=== PATIENT | female | born 1970 | race Caucasian/White ===

== ENCOUNTER 2022-04-24 05:47 | Emergency (ER) | payer OTHER, SELFPAY ==
--- NOTE | 2022-04-24 05:54 | W.ED.GENAD ---
Discharge Plan Disposition Patient Disposition: STILL A PATIENT Condition: Good Discharge Details Chief Complaint: Nk/Back Pain Clinical Impression: Pain of right scapula, Back pain, Rib pain on right side Primary Care Provider: Griselda Linda ED Provider: Christian Juárez Home Meds and New Rx's Prescriptions: No Action levothyroxine 175 mcg tablet spironolactone 100 mg tablet levonorgestrel-ethinyl estrad [Setlakin] 0.15 mg-30 mcg (91) tablets,dose pack,3 month Label Comments: take 1 tablet by mouth once daily Medical Decision Making 51-year-old female with past medical history of hypothyroidism, PCOS, who takes oral contraceptives, presents today for evaluation after fall. Last night at 11:30 PM the patient was walking out of her camper when she slipped and hit the back of her head, neck, and back from the camper and ground. She had no loss of consciousness. She is not on blood thinners. Since she fell she now has pain in her back, pain when she breathes, pain in her right chest, and also admits to tingling when she moves her neck or head but denies any neck pain. Patient denies any saddle anesthesia, numbness or tingling in the groin, change in sensation when wiping. Patient denies any bowel or bladder incontinence, leakage, or retention. Patient denies any weakness in the lower extremities or imbalance. Physical exam demonstrates tenderness over the base of the right scapula, right ribs, and T10. She has good strength in her upper extremities, however whenever she moves her upper extremities she has notable pain in the back and chest. Bedside limited E fast exam demonstrates good lung sliding bilaterally, no pericardial effusion, no evidence of free fluid in the abdomen. Due to the patient's pain tenderness and exam findings we will get a CT scan of the head neck chest and thoracic spine. Patient does not want any narcotics. We will give Toradol. Will monitor closely and reassess. HPI General Date/Time Provider Initiated Documentation: 04/24/22 05:52. HPI Narrative: 51-year-old female with past medical history of hypothyroidism, PCOS, who takes oral contraceptives, presents today for evaluation after fall. Last night at 11:30 PM the patient was walking out of her camper when she slipped and hit the back of her head, neck, and back from the camper and ground. She had no loss of consciousness. She is not on blood thinners. Since she fell she now has pain in her back, pain when she breathes, pain in her right chest, and also admits to tingling when she moves her neck or head but denies any neck pain. Patient denies any saddle anesthesia, numbness or tingling in the groin, change in sensation when wiping. Patient denies any bowel or bladder incontinence, leakage, or retention. Patient denies any weakness in the lower extremities or imbalance. Related Data Home Medications Medication Instructions Recorded Confirmed levonorgestrel 0.15 mg-ethinyl dose pk 04/24/22 04/24/22 estradiol 30 mcg tablets,3 mos pack(91) (Setlakin) levothyroxine 175 mcg tablet tab 04/24/22 04/24/22 spironolactone 100 mg tablet tab 04/24/22 04/24/22 Allergies Allergy/AdvReac Type Severity Reaction Status Date / Time chlorhexidine Allergy Intermediate Skin Rash Unverified 04/24/22 06:08 Review of Systems All systems reviewed & are unremarkable except as noted in HPI and below PFSH All Active Problems (Updated 04/24/22 @ 07:41 by Christian Juárez DO) Pain of right scapula (Acute) Back pain (Acute) Rib pain on right side (Acute) Social History Smoking/Tobacco Use Status: Never Smoking risk assessment performed?: Yes Alcohol Intake: current Alcohol Intake frequency: holidays/special occasions only Drug use: Never Substance use type: does not use Do you feel safe at home: Yes Do you feel safe in your relationship?: Yes Exam Narrative Exam Narrative: 1.Const: Well-nourished, Well-developed, appearing stated age 2.Eyes: PERRL, no conjunctival injection, and symmetrical lids. 3.ENT: Atraumatic external nose and ears. Moist MM. Neck: Symmetric, trachea midline, No thyromegaly. There is no evidence of raccoon eyes, hair sign, CSF rhinorrhea, mastoid tenderness, cranial crepitus, hemotympanum, exophthalmos, or hyphema. Patient demonstrates intact dentition with no signs of tooth avulsion or fracture, no signs of jaw deformity, no evidence of a LeFort's fracture, with an intact palate, nose and orbital region. There is no evidence of a nasal septal hematoma. No proptosis. Jaw closes symmetrically. Airway is clear. 4.CVS: +S1/S2, No murmurs or gallops. Peripheral pulses 2+ and equal in all extremities. Brisk capillary refill in all extremities. Regular rate and rhythm, Normal s1 and s2. No murmurs, carotid bruits, rubs, or gallops. Radial pulses 2+ bilaterally and symmetric. Dorsalis pedis pulses 2+ bilaterally and symmetric. 2+ capillary refill. No evidence of distant heart sounds. No extremity edema. No evidence of gross hemorrhage. 5.RESP: airway clear, no obstructions. No abrasions or ecchymosis. Chest movement symmetric with respirations. No and chest wall tenderness. Patient does have mild right lateral chest wall tenderness. Trachea midline. No crepitus. No step offs. No paradoxical movements. Lungs are clear to auscultation bilaterally. No rales, rhonchi, wheezing or stridor. Breath sound symmetric. No Sucking chest wounds. No clinical evidence of significant chest trauma. 6.GI: Soft, Nontender/Nondistended, No hepatosplenomegaly. No guarding or rebound. 7.MSK: Normocephalic. Tenderness is present over the base of the right scapula. Right rib, and T10 vertebra. No midline tenderness over the cervical or lumbar spine. There is midline tenderness over T10. Normal ROM in flexion, extension, side bend, and rotation. Patient has +5 out of 5 strength in the lower extremities in dorsiflexion and plantarflexion, knee flexion and extension, hip flexion and extension. Normal strength for dorsiflexion and plantar flexion of the great toe bilaterally. There is +2 over 2 dorsalis pedis pulses bilaterally. There is normal sensation to the skin with light touch at the foot, knee, and hip. Normal saddle sensation. Good sensation over the deep sural nerve area bilaterally. Rectal exam deferred. Reflexes are +2 over 4 in the patellar reflex bilaterally. +5 out of 5 strength in the medial, ulnar, radial nerve distribution bilaterally in the hands as well as intact light touch sensation to these dermatomes on the hands 8.Skin: Warm, Dry. No rashes or lesions. 9.Neuro: sterile processing tech II-XII grossly intact. Sensation grossly intact, no focal neurologic deficits. 10.Psych: (AAO) x3. Appropriate mood and affect Procedures Other Description: E-FAST Exam type: Diagnostic Indication for exam: Blunt trauma Views obtained: hepatorenal, perisplenic, suprapubic, pericardial, R lung, L lung Findings and interpretations: all views were adequate. No abdominal free fluid or pericardial fluid seen. Normal lung sliding, normal sea shore sign, no bar code sign indicating no pneumothorax. The patient tolerated the procedure well and there were no complications. Sign Out Sign Out Data: Sign Out Comment: Fall, head neck, head, and back. Pending imaging Last updated by Christian Juárez DO at 04/24/22 07:39
[2022-04-24 05:56] VITALS: BP 164/92; PULSE 115; RESP 16; TEMP 36.2; O2SAT 98
--- NOTE | 2022-04-24 06:00 | DI.CT_ITS ---
Exam(s) CT HEAD CERVICAL SPINE WO EXAM: CT HEAD CERVICAL SPINE WO CLINICAL HISTORY: fell, hit head and left lateral neck. TECHNIQUE: Imaging Protocol: Axial computed tomography images with coronal and sagittal reformatted images were created and reviewed COMPARISON: No exams were available for comparison FINDINGS: CT Head: Ventricles and Extra axial spaces: Normal in size and morphology for the patient's age. Hemorrhage: None. Cerebral parenchyma: Normal. Midline shift: None. Brainstem/Cerebellum: Normal. Calvarium: Normal. Visualized Paranasal sinuses/Mastoids: Clear. Soft Tissues: Unremarkable. CT Cervical Spine: Bones: No acute fracture or subluxation. Degenerative changes are seen in the cervical spine. Soft Tissues: Unremarkable. Lung Apices: Clear. IMPRESSION: 1. No acute intracranial process. 2. No acute fracture or subluxation in the cervical spine. RADIATION DOSE DELIVERED: 1,502.04mGy.cm Total DLP DATA REPOSITORY: All CT scans at this facility are submitted to the National Radiology Data Registry (NRDR) Dose Index Registry (DIR) with the [employer] ([employer]). RADIATION OPTIMIZATION: All CT scans at this facility use at least one of these dose optimization te chniques: automated exposure control; mA and/or kV adjustment per patient size (includes targeted exa ms where dose is matched to clinical indication); or iterative reconstruction.
--- NOTE | 2022-04-24 06:10 | DI.CT_ITS ---
Exam(s) CT THORACIC SPINE RECONS CT CHEST WO EXAM: CT CHEST WO and CT thoracic spine recons CLINICAL HISTORY: fell, pain right scapula and t10, and bilat ribs. TECHNIQUE: Imaging protocol: Axial computed tomography images were obtained and coronal and sagittal reformatted images were created and reviewed. COMPARISON: CT CT THORACIC SPINE RECONS from 04/24/2022 FINDINGS: Tracheobronchial tree: Patent where visualized. Pulmonary parenchyma: No consolidation or dominant measurable mass. No architectural distortion. Mediastinum and Niya: No dominant adenopathy or fluid collection. The esophagus is unremarkable. Thyroid gland: Unremarkable. Pleura: No effusion or pneumothorax. Heart: The heart is not dilated. No coronary artery calcifications are seen. No pericardial effusion. Aorta: Thoracic aorta non-dilated. Upper abdomen: There is fatty infiltration of the liver. Lymph nodes: Within normal limits. Soft tissues: Unremarkable. Bones:Within normal limits for the patient's age. Incidental note is made of a hemangioma in the T11 vertebral body and right pedicle. Thoracic spine recons: No acute fractures or subluxations are seen in the thoracic spine. Degenerati ve changes are seen throughout the spine. IMPRESSION: 1. No acute pulmonary process. 2. No acute fractures or subluxations in the thoracic spine. RADIATION DOSE DELIVERED: Total DLP Total DLP DATA REPOSITORY: All CT scans at this facility are submitted to the National Radiology Data Registry (NRDR) Dose Index Registry (DIR) with the [employer] (ACR). RADIATION OPTIMIZATION: All CT scans at this facility use at least one of these dose optimization te chniques: automated exposure control; mA and/or kV adjustment per patient size (includes targeted exa ms where dose is matched to clinical indication); or iterative reconstruction.
[2022-04-24] MEDS: Ketorolac 30 MG/ML VIAL IM (06:29)
[2022-04-24 07:01] VITALS: BP 128/81; PULSE 94; RESP 18; TEMP 37; O2SAT 98
--- NOTE | 2022-04-24 08:22 | DI.VRAD_ITS ---
PROCEDURE INFORMATION: Exam: CT Head Without Contrast Exam date and time: 04/24/2022 7:33 AM Age: 51 years old Clinical indication: Other: Fell, hit head and left lateral neck TECHNIQUE: Imaging protocol: Computed tomography of the head without contrast. Radiation optimization: All CT scans at this facility use at least one of these dose optimization techniques: automated exposure control; mA and/or kV adjustment per patient size (includes targeted exams where dose is matched to clinical indication); or iterative reconstruction. COMPARISON: No relevant prior studies available. FINDINGS: Brain: Normal. No hemorrhage. Unremarkable white matter. No mass effect. Cerebral ventricles: No ventriculomegaly. Paranasal sinuses: Visualized sinuses are unremarkable. No fluid levels. Mastoid air cells: Visualized mastoid air cells are well aerated. Bones/joints: Unremarkable. No acute fracture. Soft tissues: Unremarkable. IMPRESSION: No acute intracranial abnormality. PROCEDURE INFORMATION: Exam: CT Cervical Spine Without Contrast Exam date and time: 04/24/2022 7:33 AM Age: 51 years old Clinical indication: Other: Fell, hit head and left lateral neck TECHNIQUE: Imaging protocol: Computed tomography images of the cervical spine without contrast. Radiation optimization: All CT scans at this facility use at least one of these dose optimization techniques: automated exposure control; mA and/or kV adjustment per patient size (includes targeted exams where dose is matched to clinical indication); or iterative reconstruction. COMPARISON: No relevant prior studies available. FINDINGS: Bones/joints: No acute fracture of the cervical spine. No subluxation or dislocation of the cervical spine. Anterior osteophyte formation C5. Degenerative changes in the facets at multiple levels Discs/Spinal canal/Neural foramina: Mild Intervertebral disc space narrowing C5 through C7 the may represent degenerative disc disease.. Posterior osteophyte formation C5 through C7. Degenerative changes at C1/C2 Lungs: Lung apices are normal. Thyroid: The thyroid is unremarkable Soft tissues: Unremarkable. IMPRESSION: 1. No acute fracture of the cervical spine. 2. No subluxation or dislocation of the cervical spine. 3. Mild Intervertebral disc space narrowing C5 through C7 the may represent degenerative disc disease.. Dictated and Authenticated by: Kim Monsalve MD. Ordering:CECILLE Gonzales MD
--- NOTE | 2022-04-24 08:22 | DI.VRAD_ITS ---
Addendum created by Cathy Mello MD on 04/24/2022 8:28:18 AM EDT: Additional coronal reconstructed images of the thoracic spine were rendered from the concurrently performed chest CT after submission of the initial report. No acute fractures are identified in the thoracic spine. Vertebral bodies maintain normal height. A T11 vertebral body hemangioma is noted. There is no evidence of spondylolisthesis. Thoracic kyphosis is maintained. There are multilevel degenerative endplate osteophytes throughout the thoracic spine. There is no moderate to large disc herniation and no moderate or severe central canal stenosis. There is mild acquired central canal stenosis at T10-T11. There is no high-grade neural foraminal narrowing. Initial report created on 04/24/2022 8:21:19 AM EDT: PROCEDURE INFORMATION: Exam: CT Chest Without Contrast; Diagnostic Exam date and time: 04/24/2022 7:36 AM Age: 51 years old Clinical indication: Other: Fell, pain right scapula and t10, and bilat ribs TECHNIQUE: Imaging protocol: Diagnostic computed tomography of the chest without contrast. 3D rendering (Not supervised by radiologist): MIP and/or 3D reconstructed images were created by the technologist. Radiation optimization: All CT scans at this facility use at least one of these dose optimization techniques: automated exposure control; mA and/or kV adjustment per patient size (includes targeted exams where dose is matched to clinical indication); or iterative reconstruction. COMPARISON: CT HEAD CERVICAL SPINE WO 04/24/2022 7:33 AM FINDINGS: Lungs: Unremarkable. No consolidation or mass. Pleural spaces: Unremarkable. No pneumothorax. No pleural effusion. Heart: Heart size is normal. No coronary artery calcifications. No pericardial effusion. Lymph nodes: No pathologically enlarged mediastinal or axillary lymph nodes. While no bulky hilar lymphadenopathy is suspected, characterization of hilar structures is limited without intravenous contrast. Vasculature: Normal caliber thoracic aorta and main pulmonary artery. Bones/joints: No acute fractures are identified. Thoracic vertebral bodies maintain normal height and alignment. There are degenerative changes throughout the visualized spine and in both shoulders. Soft tissues: Unremarkable. Other findings: Hepatomegaly with hepatic steatosis. IMPRESSION: No acute posttraumatic abnormality in the chest. No acute fractures. No pneumothorax. Dictated and Authenticated by: Cathy Mello MD. Ordering:CECILLE Gonzales MD
--- NOTE | 2022-04-24 08:33 | DI.VRAD_ITS ---
PROCEDURE INFORMATION: Exam: CT Thoracic Spine Without Contrast Exam date and time: 04/24/2022 7:36 AM Age: 51 years old Clinical indication: Other: Fell, pain right scapula and t10, and bilat ribs TECHNIQUE: Imaging protocol: Computed tomography images of the thoracic spine without contrast. Radiation optimization: All CT scans at this facility use at least one of these dose optimization techniques: automated exposure control; mA and/or kV adjustment per patient size (includes targeted exams where dose is matched to clinical indication); or iterative reconstruction. COMPARISON: CT CHEST WO 04/24/2022 7:36 AM FINDINGS: Bones/joints: Vertebral bodies maintain normal height. No acute fractures are identified. There is an incidental hemangioma in the right body and pedicle of T11. There is no spondylolisthesis. Thoracic kyphosis is maintained. Discs/Spinal canal/Neural foramina: Multilevel minimal to mild loss of intervertebral disc height and degenerative endplate spurring throughout the thoracic spine. No moderate to large disc herniation. No moderate or severe central canal stenosis. Mild acquired central canal narrowing at T10-T11 and on the right at T7-T8. No high-grade foraminal narrowing. Soft tissues: Paraspinal soft tissues are unremarkable. IMPRESSION: 1. No acute posttraumatic abnormality in the thoracic spine. 2. Chronic changes as described above. Dictated and Authenticated by: Cathy Mello MD. Ordering:CECILLE Gonzales MD
--- NOTE | 2022-04-24 08:56 | ED.PROG_ITS ---
Date of service: 04/24/22 Time of Service: 07:59 Medical Decision Making Patient resting comfortably no acute distress neurologically intact. Feeling some relief after medications. CT head C-spine T-spine unremarkable, incidental hemangioma T11. Findings discussed with patient and family. Given strict retur n precautions for any neurologic symptoms such as numbness weakness paresthesias bowel or bladder disorder inability to walk or any other neurologic symptoms. We will follow-up with primary care physician next week. Anti-inflammatory and muscle relaxants to be given upon discharge. Sign Out Sign Out Data: Sign Out Comment: Fall, head neck, head, and back. Pending imaging Last updated by Christian Juárez DO at 04/24/22 07:39 Discharge Plan Disposition Patient Disposition: HOME Condition: Good Discharge Details Clinical Impression: Pain of right scapula, Back pain, Rib pain on right side Primary Care Provider: Griselda Linda ED Provider: Wayne Barker Home Meds and New Rx's Prescriptions: New cyclobenzaprine 5 mg tablet 5 mg PO BID PRN (Reason: muscle spasm) Qty: 10 0RF lidocaine [Lidoderm] 5 % adhesive patch,medicated 1 patch topical DAILY PRN (Reason: back pain) Qty: 10 0RF Rx Instructions: leave on most painful area for up to 12 hrs No Action levothyroxine 175 mcg tablet spironolactone 100 mg tablet levonorgestrel-ethinyl estrad [Setlakin] 0.15 mg-30 mcg (91) tablets,dose pack,3 month Label Comments: take 1 tablet by mouth once daily Discharge Instructions Instructions: Back Pain (ED) Additional Instructions: Please follow-up with your primary care physician. Ice or heat to areas of discomfort as needed. Use ibuprofen and/or acetaminophen for pain and swelling. Take prescriptions as prescribed. Please return to the emergency department he develop any neurologic symptoms such as numbness weakness tingling bowel or bladder dysfunction or any other abnormal symptoms.
[2022-04-24] MEDS: Acetaminophen 325 MG TAB 650 MG PO (09:03)
[2022-04-24] MEDS: Dexamethasone 10 MG/ML VIAL IVP (09:03)
[2022-04-24] MEDS: Cyclobenzaprine 10 MG TAB PO (09:03)
[2022-04-24] MEDS: Lidocaine 5% Patch 1 PATCH TP (09:03)
[2022-04-24 09:10] VITALS: BP 129/62; PULSE 89; RESP 18; O2SAT 99
== END 2022-04-24 09:32 | disposition home or self-care (01) ==
PROVIDERS: Emergency Provider Emergency Medicine; PCP Internal Medicine
DX: M25.511 Pain in right shoulder (principal); M54.6 Pain in thoracic spine; R07.89 Other chest pain; S09.8XXA Other specified injuries of head, initial encounter; W01.0XXA Fall on same level from slipping, tripping and stumbling without subsequent striking against object, initial encounter
CPT/HCPCS: 71250; 96374; 99284; 70450; 72125; J1100; J1885